=== PATIENT | female | born 1995 | race Asian ===

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

== ENCOUNTER 2017-03-14 16:44 | Emergency (ER) | payer OTHER ==
[~2017-03-14] VITALS: Ht 170.2 cm; Wt 158.8 kg
[2017-03-14 16:49] VITALS: BP 138/77; TEMP 98.4
== END 2017-03-14 17:00 | disposition home or self-care (01) ==
LOC: ED 16:44
DX: J02.9 Acute pharyngitis, unspecified (principal)
CPT/HCPCS: 99281

== ENCOUNTER → 2017-03-27 14:50 | Outpatient (CLI) | payer OTHER | END | disposition home or self-care (01) | LOC: AMB 14:50 | DX: R07.89 Other chest pain (principal) ==

== ENCOUNTER 2017-03-27 17:19 | Emergency (ER) | payer OTHER ==
[~2017-03-27] VITALS: Ht 170.2 cm; Wt 161.9 kg
[2017-03-27 17:24] VITALS: TEMP 98.8
[2017-03-27 19:50] VITALS: BP 132/87
== END 2017-03-27 19:54 | disposition home or self-care (01) ==
LOC: ED 17:19
DX: S16.1XXA Strain of muscle, fascia and tendon at neck level, initial encounter (principal); S40.011A Contusion of right shoulder, initial encounter; T22.052A Burn of unspecified degree of left shoulder, initial encounter; T21.01XA Burn of unspecified degree of chest wall, initial encounter; T31.0 Burns involving less than 10% of body surface; V43.52XA Car driver injured in collision with other type car in traffic accident, initial encounter
CPT/HCPCS: 99283

== ENCOUNTER 2017-06-20 13:39 | Emergency (ER) | payer OTHER ==
[~2017-06-20] VITALS: Ht 170.2 cm; Wt 162.4 kg
[2017-06-20 14:55] VITALS: BP 141/62; TEMP 98.3
== END 2017-06-20 14:55 | disposition home or self-care (01) ==
LOC: ED 13:39
DX: J02.9 Acute pharyngitis, unspecified (principal)
CPT/HCPCS: 87081; 87880; 99282

== ENCOUNTER 2018-03-12 00:12 | Emergency (ER) | payer OTHER ==
[~2018-03-12] VITALS: Ht 170.2 cm; Wt 180.1 kg
[2018-03-12 00:55] VITALS: BP 149/92; TEMP 98.1
== END 2018-03-12 00:55 | disposition home or self-care (01) ==
LOC: ED 00:12
DX: T74.21XA Adult sexual abuse, confirmed, initial encounter (principal)
CPT/HCPCS: 99281

== ENCOUNTER 2018-07-20 07:12 | Inpatient (IN) | payer OTHER ==
[~2018-07-20] VITALS: Ht 162.6 cm; Wt 166.5 kg
[2018-07-20] VITALS (9 sets, daily range): BP systolic 113–134; BP diastolic 61–73; TEMP 97.5–103.1; Ht 162.6 cm; Wt 166.5 kg
[2018-07-20 09:22] LABS: POTASSIUM 4.4 mmol/L (3.6-5.2)
[2018-07-20 09:30] LABS: PLATELET COUNT 819 K/uL (152-353)
[2018-07-21] VITALS (8 sets, daily range): BP systolic 94–153; BP diastolic 43–83; TEMP 98.4–102.4
[2018-07-21 14:11] LABS: PLATELET COUNT 519 K/uL (152-353)
[2018-07-21 14:49] LABS: POTASSIUM 3.8 mmol/L (3.6-5.2)
[2018-07-22 04:00] VITALS: BP 103/78; TEMP 97.9
[2018-07-22 08:00] VITALS: BP 126/78; TEMP 101.4
[2018-07-22 11:31] LABS: PLATELET COUNT 498 K/uL (152-353)
[2018-07-22 11:57] LABS: POTASSIUM 3.9 mmol/L (3.6-5.2)
[2018-07-22 12:00] VITALS: BP 106/54; TEMP 99.5
[2018-07-22 16:00] VITALS: BP 103/57; TEMP 97.4
[2018-07-22 20:00] VITALS: BP 108/59; TEMP 98.4
[2018-07-23] VITALS: BP 112/69; TEMP 100.1
[2018-07-23 04:00] VITALS: BP 96/57; TEMP 98.5
[2018-07-23 04:58] LABS: POTASSIUM 3.5 mmol/L (3.6-5.2)
[2018-07-23 06:28] LABS: PLATELET COUNT 585 K/uL (152-353)
[2018-07-23 08:04] VITALS: BP 96/50; TEMP 98.7
[2018-07-23 12:03] VITALS: BP 121/68; TEMP 99.2
[2018-07-23 16:04] VITALS: BP 110/75; TEMP 98.8
[2018-07-23 20:07] VITALS: BP 112/61; TEMP 97.5
[2018-07-24 00:22] VITALS: BP 144/68; TEMP 101.3
== END 2018-07-24 01:15 | disposition short-term general hospital (02) | DRG 811 ==
LOC: ED 07:12 → MED/SURG 12:15
PROVIDERS: Family Medicine; ADMIT Emergency Medicine
PROC: 30233N1 Transfusion of Nonautologous Red Blood Cells into Peripheral Vein, Percutaneous Approach (ICD-10-PCS; principal; 2018-07-21)
DX: D64.89 Other specified anemias (principal); J18.8 Other pneumonia, unspecified organism; A41.89 Other specified sepsis; N10 Acute pyelonephritis; B96.20 Unspecified Escherichia coli [E. coli] as the cause of diseases classified elsewhere; N93.8 Other specified abnormal uterine and vaginal bleeding; R50.9 Fever, unspecified; R00.0 Tachycardia, unspecified; I95.89 Other hypotension; R06.82 Tachypnea, not elsewhere classified
CPT/HCPCS: 36415; 36600; 80048; 80053; 81000; 81025; 82272; 82550; 82553; 82805; 83605; 83615; 84484; 85007; 85014; 85018; 85027; 85379; 86850; 86900; 86901; 86922; 87040; 87077; 87086; 87088; 87185; 87186; 87205; 87502; 93005; 94760; 99283; J0456; J0696; J1885; J2405; P9016; Q9963

== ENCOUNTER 2018-07-24 01:31 | Outpatient (CLI) | payer OTHER | END 2018-07-24 02:51 | disposition short-term general hospital (02) | LOC: AMB 01:31 | DX: D64.89 Other specified anemias (principal); J18.8 Other pneumonia, unspecified organism; A41.89 Other specified sepsis; N10 Acute pyelonephritis; B96.20 Unspecified Escherichia coli [E. coli] as the cause of diseases classified elsewhere; N93.8 Other specified abnormal uterine and vaginal bleeding; R50.9 Fever, unspecified; R00.0 Tachycardia, unspecified; I95.89 Other hypotension; R06.82 Tachypnea, not elsewhere classified | CPT/HCPCS: A0425; A0429 ==

== ENCOUNTER 2021-02-11 17:29 | Emergency (ER) | payer OTHER ==
[~2021-02-11] VITALS: Ht 162.6 cm; Wt 184.2 kg
[2021-02-11 21:05] VITALS: BP 122/76; TEMP 98
== END 2021-02-11 21:05 | disposition home or self-care (01) ==
LOC: ED 17:29
DX: J06.9 Acute upper respiratory infection, unspecified (principal); U07.1 COVID-19
CPT/HCPCS: 87635; 99283; U0003

== ENCOUNTER 2022-02-10 18:33 | Emergency (ER) | payer OTHER ==
[~2022-02-10] VITALS: Ht 162.6 cm; Wt 184.2 kg
[2022-02-10 18:42] VITALS: BP 120/79; TEMP 98.8
== END 2022-02-10 19:00 | disposition home or self-care (01) ==
LOC: ED 18:33
DX: Z53.21 Procedure and treatment not carried out due to patient leaving prior to being seen by health care provider (principal)